=== PATIENT | female | born 1970 | race Caucasian/White ===

== ENCOUNTER → 2022-04-11 | Outpatient (CLI) | payer OTHER ==
[2022-04-11 11:00] VITALS: BP 153/93; PULSE 98; RESP 17; TEMP 97.8
--- NOTE | 2022-04-11 12:31 | P.HPOB ---
History of Present Illness H&P Date: 04/11/22 Chief Complaint: The patient is here for her routine gynecologic exam. This is a 51-year-old with an LMP of 2014. The patient is here to establish with this office. Her last pelvic exam was around 2014 when she had a robotic TLH with [facility]. She has been experiencing vulvar itching, burning and redness for about 1-1/2 months. She has used triamcinolone cream which has given her some relief. She denies vaginal discharge or vaginal odor. She thinks it may have had something to do with a new soap that she had tried. She does have some sweating episodes mostly on her head and not the rest of her body. She has also noticed occasional urinary urgency without urinary frequency or dysuria. She states that occasionally she has to get to the bathroom right away. She denies urinary leakage with coughing or sneezing. Review of Systems The patient's weight has been stable over the last year. She did notice some weight gain when she quit smoking 2 years ago. She denies respiratory, cardiac, or G.I. problems. Past Medical History Past Medical History: COPD, Diabetes Mellitus, Hypertension Additional Past Medical History / Comment(s): LT KNEE PAIN. Gout. PAST TAX AUDIT MANAGER HISTORY: She has no history of STDs. She did have endometriosis and pelvic adhesions. History of Any Multi-Drug Resistant Organisms: None Reported Past Surgical History: Appendectomy, Cholecystectomy, Orthopedic Surgery Additional Past Surgical History / Comment(s): LAPAROSCOPY X2; RT HIP BONE SPUR/LIGAMENT SURG; RT FOOT SURG. Arthroscopic knee surgery. Robotic TLH with [facility] 2014. Colonoscopy 2019(next after 10y). Past Anesthesia/Blood Transfusion Reactions: No Reported Reaction Past Psychological History: Anxiety, Depression Smoking Status: Former smoker Past Alcohol Use History: Occasional (6 per month) Additional Past Alcohol Use History / Comment(s): Quit smoking 2019. Past Drug Use History: None Reported Additional History: She is and is currently not seeing anybody at this time. 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 - Past Family History Mother Additional Family Medical History / Comment(s): Fibromyalgia and depression. Maternal aunt had diabetes. Father Family Medical History: Cancer, COPD, Diabetes Mellitus, Myocardial Infarction ([place]) Additional Family Medical History / Comment(s): Lung cancer. Paternal grandfather had colon cancer. Medications and Allergies Home Medications Medication Instructions Recorded Confirmed Type Enalapril [Vasotec] 20 mg PO DAILY 04/22/14 06/23/15 History PARoxetine HCL [Paxil] 40 mg PO HS 04/22/14 04/11/22 History Ibuprofen [Motrin] 600 mg PO Q6HR PRN #30 tab 06/24/15 04/11/22 Rx Allopurinol [Zyloprim] 100 mg PO DAILY 04/11/22 04/11/22 History Calcium Carb/Mag Ox/Zinc Sulf 1 tablet PO DAILY 04/11/22 04/11/22 History [Dry-Awh-Ulcj 334-134-5 mg Tab] Cholecalciferol [Vitamin D3 (125 125 mcg PO DAILY 04/11/22 04/11/22 History Mcg = 5000 Iu)] Empagliflozin [Jardiance] 25 mg PO DAILY 04/11/22 04/11/22 History Vitamin K2 100 mcg PO DAILY 04/11/22 04/11/22 History metFORMIN HCL [Glucophage XR] 750 mg PO DAILY 04/11/22 04/11/22 History metFORMIN HCL [Glucophage] 500 mg PO DAILY 04/11/22 04/11/22 History Allergies Allergy/AdvReac Type Severity Reaction Status Date / Time acetaminophen [From Vicodin] AdvReac Itching Verified 04/11/22 10:53 adhesive AdvReac Rash/Hives Verified 04/11/22 10:53 hydrocodone bitartrate AdvReac Itching Verified 04/11/22 10:53 [From Vicodin] Exam Vital Signs Temp Pulse Resp BP Pulse Ox 04/11/22 10:57 97.8 F 98 17 153/93 97 Intake and Output 04/10/22 04/11/22 04/11/22 22:59 06:59 14:59 Other: Weight 116.12 kg Height 5 feet 5 inches, weight 256 pounds, BMI 42.6. This is a well-developed well-nourished heavyset white female who is alert and oriented times 3 in no acute distress. HEENT: Within normal limits. NECK: Supple without mass or thyromegaly. CHEST AND LUNGS: Clear to auscultation. HEART: Regular rate and rhythm. BREASTS: Are without mass or discharge. AXILLARY EXAM: Negative for adenopathy. BACK: Negative for CVA tenderness. ABDOMEN: Soft, nontender, without palpable masses. PELVIC EXAM: External genitalia reveals mild atrophy with generalized erythema extending to the perineum with no focal lesions. Vagina appears normal with slight thick white discharge without odor. There is no evidence of prolapse. Bimanual examination is negative for mass or tenderness. RECTAL EXAM: Rectovaginal exam is negative for mass or tenderness and is negative for occult blood. EXTREMITIES: Nontender. IMPRESSION: 1. 51-year-old menopausal female status post TLH with [facility] for benign reasons. 2. Acute vulvitis. Suspect andrew vaginitis. PLAN: 1. Pap smears have been discontinued. 2. Self breast awareness was discussed with the patient. We have also discussed symptoms associated with inflammatory breast cancer. 3. Screening mammogram will be due in July 2022. The patient states her last mammogram was done at [facility] in July 2021. She states it was normal. Her slip for a mammogram to be done one year after her last one was given to the patient. 4. Osteoporosis prevention was discussed. I have stressed the importance of adequate calcium, vitamin D and regular exercise. Recommended amounts of calcium and vitamin D were also discussed. 5. She has not received a Covid vaccination, but she states she did have Covid in the past. She understands the CDC recommends Covid vaccination. She will consider this. 6. We have discussed her infrequent urinary urgency and how this makes her get to the bathroom right away. I have recommended regular kegal exercises with timed voids. If symptoms are not improving, we can consider further evaluation and medications. 7. Affirm vaginitis panel was obtained from the vagina. If this is negative, consider treatment with Kenalog cream. 8. She was advised to return in one year for her annual well woman exam and as needed.
[2022-04-12 14:06] LABS: Gardnerella Positive (Negative); Source Vagina; Trichomonas Negative (Negative)
--- NOTE | 2022-04-12 14:19 | P.PN ---
Progress Note - Text Progress Note Date: 04/12/22 OUTPATIENT FOLLOW-UP NOTE TEST(S)/RESULTS: Test results from 04/11/2022 include a firm vaginitis panel positive for Gardnerella. It was negative for Altagracia and Trichomonas. METHOD OF NOTIFICATION: The patient was notified by phone. PATIENT COMMENTS: DIAGNOSIS: Bacterial vaginosis DISCUSSION: She will be treated with metronidazole 500 mg by mouth twice a day 7 days. A prescription for Diflucan 150 mg, #2, 1 by mouth every 48 hours if she continues to have vaginitis symptoms after the antibiotic. The electronic prescription will be sent to [facility] pharmacy in [place]. PLAN: As above. Call if problems.
== END ==
LOC: WWCWWP 10:24
PROVIDERS: ATTEND Obstetrics & Gynecology
DX: Z01.419 Encounter for gynecological examination (general) (routine) without abnormal findings (principal); B96.89 Other specified bacterial agents as the cause of diseases classified elsewhere; N76.2 Acute vulvitis; F41.9 Anxiety disorder, unspecified; F32.A Depression, unspecified; Z78.0 Asymptomatic menopausal state; Z90.721 Acquired absence of ovaries, unilateral; E11.9 Type 2 diabetes mellitus without complications; I10 Essential (primary) hypertension; J44.9 Chronic obstructive pulmonary disease, unspecified; Z87.891 Personal history of nicotine dependence; Z79.84 Long term (current) use of oral hypoglycemic drugs; Z88.5 Allergy status to narcotic agent; Z88.6 Allergy status to analgesic agent; Z91.048 Other nonmedicinal substance allergy status
CPT/HCPCS: 87480; 87510; 87660